=== PATIENT | male | born 1955 | race Caucasian/White ===

== ENCOUNTER 2023-07-27 09:22 | Day surgery (SDC) | payer MEDICARE, MEDICAID, SELFPAY ==
[2023-07-21 14:57] VITALS: BMI 27.8
--- NOTE | 2023-07-23 15:00 | HO.ANESPROP2 ---
Documented by User: Anna Schmidt NP 07/23/23 15:01 HPI - Anesthesia Eval Consult details Narrative: 68yo M for Right Cataract Extraction IOL Insertion Medically Cleared No previous cataract on record ON LICENSE OF [facility] Past Medical History Medical History Lumbar radiculopathy Central pain syndrome Hyperlipidemia CVA (cerebral vascular accident) HTN (hypertension) Diabetes Surgical History Surgical History Surgical history unknown Social History Social History Patient Tobacco Use Status: Never used Tobacco Advance Directives: No Advance Directives Information Provided: Yes Advance Directives on File: No Meds Allergies Allergy/AdvReac Type Severity Reaction Status Date / Time gabapentin Allergy Severe throat Verified 07/27/23 13:00 closes aspirin Allergy Unknown Unknown Verified 07/27/23 13:00 tramadol Allergy Unknown Unknown Verified 07/27/23 13:00 Home Medications ?Medication ?Instructions ?Recorded ?Confirmed ?Last Taken ?Type atorvastatin 80 mg tablet 80 mg PO DAILY 07/21/23 07/27/23 07/26/23 History glipizide 5 mg tablet 5 mg PO DAILY 07/21/23 07/27/23 07/26/23 History labetalol 200 mg tablet 200 mg PO BID 07/21/23 07/27/23 07/26/23 History lisinopril 5 mg tablet 5 mg PO DAILY 07/21/23 07/27/23 07/26/23 History metformin 850 mg tablet 850 mg PO BID 07/21/23 07/27/23 07/26/23 History oxycodone-acetaminophen 5 mg-325 1 tab PO BID PRN pain 07/21/23 07/21/23 Unknown History mg tablet Exam Height,Weight and Vital Signs: Height 5 ft 10 in Weight 88 kg Assessment and Plan Assessment Anesthesia Assessment: Chart Reviewed Documented by User: Gail Zavala MD 07/27/23 13:08 ON LICENSE OF [facility] Past Medical History Medical History Lumbar radiculopathy Central pain syndrome Hyperlipidemia CVA (cerebral vascular accident) HTN (hypertension) Diabetes Surgical History Surgical History Surgical history unknown History of Problems with Anesthesia: No Social History Social History Patient Tobacco Use Status: Never used Tobacco Advance Directives: No Advance Directives Information Provided: Yes Advance Directives on File: No Meds Allergies Allergy/AdvReac Type Severity Reaction Status Date / Time gabapentin Allergy Severe throat Verified 07/27/23 13:00 closes aspirin Allergy Unknown Unknown Verified 07/27/23 13:00 tramadol Allergy Unknown Unknown Verified 07/27/23 13:00 Home Medications ?Medication ?Instructions ?Recorded ?Confirmed ?Last Taken ?Type atorvastatin 80 mg tablet 80 mg PO DAILY 07/21/23 07/27/23 07/26/23 History glipizide 5 mg tablet 5 mg PO DAILY 07/21/23 07/27/23 07/26/23 History labetalol 200 mg tablet 200 mg PO BID 07/21/23 07/27/23 07/26/23 History lisinopril 5 mg tablet 5 mg PO DAILY 07/21/23 07/27/23 07/26/23 History metformin 850 mg tablet 850 mg PO BID 07/21/23 07/27/23 07/26/23 History oxycodone-acetaminophen 5 mg-325 1 tab PO BID PRN pain 07/21/23 07/21/23 Unknown History mg tablet Exam Airway Mallampati Class: III (edentulous) TM Dist: >3cm Neck ROM: Full Denture: Upper and Lower Loose/Missing/Broken Teeth: Yes, Upper and Lower Heart: RRR Lungs: CTA Assessment and Plan Assessment Anesthesia Assessment: Anesthesia Plan Discussed Final Anesthetic Review History of Problems with Anesthesia: No NPO: Yes ASA Class: III Final Preanesthetic Review: Meds/Allgs Chart Reviewed, Consent Obtained/Reviewed and Anes Risks/Benef Reviewed Patient Risk: Intermediate Procedure Risk: Low Anesthetic Plan Anesthetic Plan: MAC: Disposition: Standard PACU
[2023-07-27] MEDS: Tetracaine HCl/PF 0.5% Oph Sol 4 ML DROPS 1 DROP EYE-RIGHT (13:05)
[2023-07-27] MEDS: Tropicamide 1 % Ophth Sol 3 ML BTL 1 DROP EYE-RIGHT ×3 (13:06→13:24)
[2023-07-27] MEDS: Lactated Ringers 500 ML 50 ML IV (13:07)
[2023-07-27] MEDS: Ketorolac Tromethamine 0.5% Op 10 ML DROPS 1 DROP EYE-RIGHT ×3 (13:09→13:27)
[2023-07-27] MEDS: Phenylephrine HCL 2.5% Oph SoL 2 ML BOTTLE 1 DROP EYE-RIGHT ×3 (13:12→13:30)
[2023-07-27 13:25] LABS: Glucose, Whole Blood 126 mg/dL (60-115)
[2023-07-27 13:31] VITALS: BP 157/97; PULSE 68; RESP 16; TEMP 36.3; O2SAT 97
--- NOTE | 2023-07-27 14:31 | MHC.SHP ---
Pre-Procedural Eval Section A - 24 Hr Update-Section A only Date of Service: 07/27/23 The patient is an INPATIENT: No Changes since office visit: No Cold of Flu in the past 2 weeks, No New Medical Problems, No Changes in Medication and No Patient answered all questions The patient has been examined within 24 hours of the surgical procedure. The History & Physical has been completed within 30 days and I have reviewed it.: Yes Section B - Complete if H&P > 30 days Chief Complaint: Age-related nuclear cataract, right eye Allergies: Allergies Allergy/AdvReac Type Severity Reaction Status Date / Time gabapentin Allergy Severe throat Verified 07/27/23 13:00 closes aspirin Allergy Unknown Unknown Verified 07/27/23 13:00 tramadol Allergy Unknown Unknown Verified 07/27/23 13:00 Plan Diagnosis/Plan: Unchanged I have reviewed the history and physical and performed a pertinent physical examination on my patient. No changes have occurred unless specified. Time Spent With Patient Time: Total time managing care of this patient today ____ minutes.
--- NOTE | 2023-07-27 14:32 | P.PCNO_ITS ---
Ophthalmology Procedure Procedure Date of Service: 07/27/23 Ophthalmology Viscoelastic: Healon Duet Dual Pack Pro Ophthalmology Lenses: IOL Acrysof MP - MA60AC (21.5) Procedure Notes: PREOPERATIVE DIAGNOSIS: Decreased visual acuity right eye secondary to cataract POSTOPERATIVE DIAGNOSIS: Same PROCEDURE: Right cataract extraction with intraocular lens insertion SURGEON: Charbel Carroll M.D. ANESTHESIA: Topical/MAC ESTIMATED BLOOD LOSS: None COMPLICATIONS: None After obtaining informed consent, the patient was brought to the operating room suite and placed in the supine position. After adequate sedation per anesthesia, topical drops of Tetracaine were given to the right eye. The eye was then prepped and draped in the usual sterile fashion. The operating room microscope was then positioned over the operative eye and a lid speculum placed. A paracentesis was created. Viscoelastic was then instilled into the anterior chamber. A three plane incision was then created temporally, utilizing a 2.85 mm keratome. Capsulotomy forceps were then utilized to create a circular tear capsulotomy. Hydrodissection and hydrodelineation were carried out until adequate mobilization of the nucleus occurred. Phacoemulsification was then utilized to remove the dense central nu cleus followed by removal of the cortical material utilizing the automated aspiration irrigation unit. Viscoelastic was instilled into the posterior capsular bag followed by placement of a posterior chamber intraocular lens without difficulty. The residual Viscoelastic was then removed utilizing the automated IA machine. The wound was checked and found to be watertight. The patient tolerated the procedure well and the lid speculum was removed. Intracameral injection of Vigamox 0.1 mL followed by a subtenon injection of Kenalog-40 0.2 mL were administered. The patient will be seen in the a.m.
[2023-07-27 15:12] VITALS: BP 149/90; PULSE 78; RESP 18; TEMP 36.4; O2SAT 97
== END 2023-07-27 15:15 | disposition home or self-care (01) ==
PROVIDERS: PCP Family Medicine; Visit Provider Ophthalmology
PROC: (CPT 66985; principal; 2023-07-27 12:40)
DX: H25.11 Age-related nuclear cataract, right eye (principal); E11.3293 Type 2 diabetes mellitus with mild nonproliferative diabetic retinopathy without macular edema, bilateral; H52.4 Presbyopia; H18.413 Arcus senilis, bilateral; I10 Essential (primary) hypertension; Z79.84 Long term (current) use of oral hypoglycemic drugs; Z79.899 Other long term (current) drug therapy; Z88.8 Allergy status to other drugs, medicaments and biological substances
CPT/HCPCS: 66984; 82947; J2250; J3010; J3301; V2630

== ENCOUNTER 2023-08-10 09:28 | Day surgery (SDC) | payer MEDICARE, MEDICAID, SELFPAY ==
[2023-07-21 15:04] VITALS: BMI 27.8
--- NOTE | 2023-08-06 15:16 | P.CONAN_ITS ---
Documented by User: Anna Schmidt NP 08/06/23 15:17 HPI - Anesthesia Eval Consult details Narrative: Left Cataract Extraction IOL Insertion s/p Right eye 07/27/23: Fent 50, Midaz 2 PMFSH Past Medical History Medical History Lumbar radiculopathy Central pain syndrome Hyperlipidemia CVA (cerebral vascular accident) HTN (hypertension) Diabetes Surgical History Surgical History Surgical history unknown History of Problems with Anesthesia: No Social History Social History Patient Tobacco Use Status: Never used Tobacco Advance Directives: No (unknown) Advance Directives Information Provided: Yes Advance Directives on File: No Meds Allergies Allergy/AdvReac Type Severity Reaction Status Date / Time gabapentin Allergy Severe throat Verified 08/10/23 09:38 closes aspirin Allergy Unknown Unknown Verified 08/10/23 09:38 tramadol Allergy Unknown Unknown Verified 08/10/23 09:38 Home Medications ?Medication ?Instructions ?Recorded ?Confirmed ?Last Taken ?Type atorvastatin 80 mg tablet 80 mg PO DAILY 07/21/23 07/27/23 07/26/23 History glipizide 5 mg tablet 5 mg PO DAILY 07/21/23 07/27/23 07/26/23 History labetalol 200 mg tablet 200 mg PO BID 07/21/23 07/27/23 07/26/23 History lisinopril 5 mg tablet 5 mg PO DAILY 07/21/23 07/27/23 07/26/23 History metformin 850 mg tablet 850 mg PO BID 07/21/23 07/27/23 07/26/23 History oxycodone-acetaminophen 5 mg-325 1 tab PO BID PRN pain 07/21/23 07/21/23 08/10/23 04:00 History mg tablet Exam Height,Weight and Vital Signs: Height 5 ft 10 in Weight 88 kg Assessment and Plan Assessment Anesthesia Assessment: Chart Reviewed Final Anesthetic Review History of Problems with Anesthesia: No Documented by User: Gail Zavala MD 08/10/23 09:52 [facility] Past Medical History Medical History Lumbar radiculopathy Central pain syndrome Hyperlipidemia CVA (cerebral vascular accident) HTN (hypertension) Diabetes Surgical History Surgical History Surgical history unknown Social History Social History Patient Tobacco Use Status: Never used Tobacco Advance Directives: No (unknown) Advance Directives Information Provided: Yes Advance Directives on File: No Meds Allergies Allergy/AdvReac Type Severity Reaction Status Date / Time gabapentin Allergy Severe throat Verified 08/10/23 09:38 closes aspirin Allergy Unknown Unknown Verified 08/10/23 09:38 tramadol Allergy Unknown Unknown Verified 08/10/23 09:38 Home Medications ?Medication ?Instructions ?Recorded ?Confirmed ?Last Taken ?Type atorvastatin 80 mg tablet 80 mg PO DAILY 07/21/23 07/27/23 07/26/23 History glipizide 5 mg tablet 5 mg PO DAILY 07/21/23 07/27/23 07/26/23 History labetalol 200 mg tablet 200 mg PO BID 07/21/23 07/27/23 07/26/23 History lisinopril 5 mg tablet 5 mg PO DAILY 07/21/23 07/27/23 07/26/23 History metformin 850 mg tablet 850 mg PO BID 07/21/23 07/27/23 07/26/23 History oxycodone-acetaminophen 5 mg-325 1 tab PO BID PRN pain 07/21/23 07/21/23 08/10/23 04:00 History mg tablet Exam Airway Mallampati Class: II (edentulous) TM Dist: >3cm Neck ROM: Full Denture: Upper and Lower Loose/Missing/Broken Teeth: Yes, Upper and Lower Heart: RRR Lungs: CTA Assessment and Plan Assessment Anesthesia Assessment: Anesthesia Plan Discussed Final Anesthetic Review NPO: Yes ASA Class: III Final Preanesthetic Review: Meds/Allgs Chart Reviewed, Consent Obtained/Reviewed and Anes Risks/Benef Reviewed Patient Risk: Intermediate Procedure Risk: Low Anesthetic Plan Anesthetic Plan: MAC: Disposition: Standard PACU
[2023-08-10 09:39] VITALS: BP 151/83; PULSE 80; RESP 16; TEMP 36.9; O2SAT 97
[2023-08-10] MEDS: Tetracaine HCl/PF 0.5% Oph Sol 4 ML DROPS 1 DROP EYE-LEFT (09:47)
[2023-08-10] MEDS: Cyclopentolate 1 % Ophth Sol 2 ML DRPBTL 1 DROP EYE-LEFT ×3 (09:49→10:02)
[2023-08-10] MEDS: Tropicamide 1 % Ophth Sol 3 ML BTL 1 DROP EYE-LEFT ×3 (09:51→10:03)
[2023-08-10] MEDS: Ketorolac Tromethamine 0.5% Op 10 ML DROPS 1 DROP EYE-LEFT ×3 (09:52→10:04)
[2023-08-10] MEDS: Lactated Ringers 500 ML 50 ML IV (09:55)
[2023-08-10] MEDS: Phenylephrine HCL 2.5% Oph SoL 2 ML BOTTLE 1 DROP EYE-LEFT ×3 (09:55→10:06)
[2023-08-10 10:03] LABS: Glucose, Whole Blood 197 mg/dL (60-115)
--- NOTE | 2023-08-10 10:10 | HO.ANESPROP2 ---
[facility] Past Medical History Medical History Lumbar radiculopathy Central pain syndrome Hyperlipidemia CVA (cerebral vascular accident) HTN (hypertension) Diabetes Surgical History Surgical History Surgical history unknown History of Problems with Anesthesia: No Social History Social History Patient Tobacco Use Status: Never used Tobacco Advance Directives: No (unknown) Advance Directives Information Provided: Yes Advance Directives on File: No Meds Allergies Allergy/AdvReac Type Severity Reaction Status Date / Time gabapentin Allergy Severe throat Verified 08/10/23 09:38 closes aspirin Allergy Unknown Unknown Verified 08/10/23 09:38 tramadol Allergy Unknown Unknown Verified 08/10/23 09:38 Active Medications: Current Medications Lactated Ringer's (Lr) 500 mls @ 50 mls/hr IV .Q10H JOYCE Stop: 08/10/23 19:44 Last Admin: 08/10/23 09:55 Dose: 50 mls/hr Povidone Iodine (Povidone Iodine 5 % Ophth Soln 30 Ml Bottle) 1 appl EYE-LEFT PREOP PRN PRN Reason: Pre-Op Surgical Implant Prophy Home Medications ?Medication ?Instructions ?Recorded ?Confirmed ?Last Taken ?Type atorvastatin 80 mg tablet 80 mg PO DAILY 07/21/23 07/27/23 07/26/23 History glipizide 5 mg tablet 5 mg PO DAILY 07/21/23 07/27/23 07/26/23 History labetalol 200 mg tablet 200 mg PO BID 07/21/23 07/27/23 07/26/23 History lisinopril 5 mg tablet 5 mg PO DAILY 07/21/23 07/27/23 07/26/23 History metformin 850 mg tablet 850 mg PO BID 07/21/23 07/27/23 07/26/23 History oxycodone-acetaminophen 5 mg-325 1 tab PO BID PRN pain 07/21/23 07/21/23 08/10/23 04:00 History mg tablet Exam Height,Weight and Vital Signs: Height 5 ft 10 in Weight 88 kg Last Vital Signs Temp 98.4 F 08/10/23 09:39 Pulse 80 08/10/23 09:39 Resp 16 08/10/23 09:39 BP 151/83 H 08/10/23 09:39 Pulse Ox 97 08/10/23 09:39 O2 Del Method Room Air 08/10/23 09:39 Pertinent Lab Results Pertinent Lab Results: Laboratory Tests 08/10/23 09:58 POC Glucose 197 H Airway Mallampati Class: III TM Dist: >3cm Neck ROM: Full Loose/Missing/Broken Teeth: Yes, Upper and Lower Heart: RRR Lungs: CTA Assessment and Plan Assessment Anesthesia Assessment: Anesthesia Plan Discussed and Chart Reviewed Final Anesthetic Review History of Problems with Anesthesia: No NPO: Yes ASA Class: III Final Preanesthetic Review: Meds/Allgs Chart Reviewed, Consent Obtained/Reviewed and Anes Risks/Benef Reviewed Patient Risk: Intermediate Procedure Risk: Low Anesthetic Plan Anesthetic Plan: MAC: Disposition: Standard PACU
--- NOTE | 2023-08-10 10:38 | MHC.SHP ---
Pre-Procedural Eval Section A - 24 Hr Update-Section A only Date of Service: 08/10/23 The patient is an INPATIENT: No Changes since office visit: No Cold of Flu in the past 2 weeks, No New Medical Problems, No Changes in Medication and No Patient answered all questions The patient has been examined within 24 hours of the surgical procedure. The History & Physical has been completed within 30 days and I have reviewed it.: Yes Section B - Complete if H&P > 30 days Chief Complaint: Age-related nuclear cataract, left eye Allergies: Allergies Allergy/AdvReac Type Severity Reaction Status Date / Time gabapentin Allergy Severe throat Verified 08/10/23 09:38 closes aspirin Allergy Unknown Unknown Verified 08/10/23 09:38 tramadol Allergy Unknown Unknown Verified 08/10/23 09:38 Plan Diagnosis/Plan: Unchanged I have reviewed the history and physical and performed a pertinent physical examination on my patient. No changes have occurred unless specified. Time Spent With Patient Time: Total time managing care of this patient today ____ minutes.
--- NOTE | 2023-08-10 10:39 | HO.PNOPHT ---
Ophthalmology Procedure Procedure Date of Service: 08/10/23 Ophthalmology Viscoelastic: Healon Duet Dual Pack Pro Ophthalmology Lenses: IOL Acrysof MP - MA60AC (21.5) Procedure Notes: PREOPERATIVE DIAGNOSIS: Decreased visual acuity left eye secondary to cataract POSTOPERATIVE DIAGNOSIS: Same PROCEDURE: Left cataract extraction with intraocular lens insertion SURGEON: Charbel Carroll M.D. ANESTHESIA: Topical/MAC ESTIMATED BLOOD LOSS: None COMPLICATIONS: Zonular Dehisence After obtaining informed consent, the patient was brought to the operation room suite and placed in the supine position. After adequate sedation per anesthesia, topical drops of Tetracaine were given to the left eye. The eye was then prepped and draped in the usual sterile fashion. The operating room microscope was then positioned over the operative eye and a lid speculum placed. A paracentesis was created. Viscoelastic was then instilled into the anterior chamber. A three plane incision was then created temporally, utilizing a 2.85 mm keratome. Capsulotomy forceps were then utilized to create a circular tear capsulotomy. Hydrodissection and hydrodelineation were carried out until adequate mobilization of the nucleus occurred. Phacoemulsification was then utilized to remove the dense central nucleus followed by noteing zonular dehisence requiring a CTR. This was then followed by removal of the cortical material utilizing the automated aspiration irrigation unit. Viscoat elastic was instilled into the posterior capsular bag followed by placement of a posterior chamber intraocular lens without difficulty. The residual Viscoat elastic was then removed utilizing the automated IA machine. The wound was check and found to be watertight. The patient tolerated the procedure well and the lid speculum was removed. Intracameral injection of Vigamox 0.1 mL followed by a subtenon injection of Kenalog-40 0.2 mL were administered. The patient will be seen in the a.m.
[2023-08-10 11:14] VITALS: BP 122/84; PULSE 73; RESP 16; TEMP 36.6; O2SAT 97
== END 2023-08-10 11:31 | disposition home or self-care (01) ==
PROVIDERS: PCP Family Medicine; Visit Provider Ophthalmology
PROC: (CPT 66985; principal; 2023-08-10 10:30)
DX: H25.12 Age-related nuclear cataract, left eye (principal); H52.4 Presbyopia; H27.8 Other specified disorders of lens; Y83.8 Other surgical procedures as the cause of abnormal reaction of the patient, or of later complication, without mention of misadventure at the time of the procedure; Y77.3 Surgical instruments, materials and ophthalmic devices (including sutures) associated with adverse incidents; Y92.234 Operating room of hospital as the place of occurrence of the external cause; I10 Essential (primary) hypertension; E11.3293 Type 2 diabetes mellitus with mild nonproliferative diabetic retinopathy without macular edema, bilateral; Z79.84 Long term (current) use of oral hypoglycemic drugs; Z79.899 Other long term (current) drug therapy; Z88.8 Allergy status to other drugs, medicaments and biological substances
CPT/HCPCS: 66982; 82947; J2250; J2405; J3010; J3301; V2630